=== PATIENT | male | born 1965 | race Caucasian/White ===

== ENCOUNTER 2019-01-07 18:50 | Emergency (ER) | payer OTHER ==
[~2019-01-07] VITALS: Ht 175.3 cm; Wt 93.9 kg
[~2019-01-07 18:50] MED LIST: ASPIR 8181 M1 PO; CARAFATE 1 GM TA1 GM PO; LIPITOR10 MG PO; PRILOSEC20 MG PO
[2019-01-07] MEDS ORDERED: OMEPRAZOLE 20 M20 M1 PO (19:00)
[2019-01-07] MEDS ORDERED: LISINOPRIL2.5 MG PO (19:00)
[2019-01-07 19:18] LABS: ABSOLUTE BASOPHILS 0.1 thou/uL (0.0-0.2); ABSOLUTE EOSINOPHILS 0.1 thou/uL (0.0-0.7); ABSOLUTE LYMPHOCYTES 1.3 thou/uL (0.8-5.3); ABSOLUTE MONOCYTES 1.2 thou/uL (0.0-1.2); ABSOLUTE NEUTROPHILS 6.6 thou/uL (1.6-8.1); BASOPHILS 0.6 %; EOSINOPHILS 0.7 %; HEMATOCRIT 38.5 % (42.0-52.0); HEMOGLOBIN 13.3 gm/dL (14.0-18.0); LYMPHOCYTES 13.9 %; MCH 29.2 pg (26.0-34.0); MCHC 34.5 g/dL (28.0-37.0); MCV 84.4 fL (80.0-100.0); MONOCYTES 13.4 %; MPV 8.7 fl. (7.2-11.1); NUCLEATED RBCS 0 /100WBC; PLATELET COUNT* 222 thou/uL (150-400); POLYS 71.4 %; RBC 4.55 mil/uL (4.50-6.00); RDW-CV 13.9 % (10.5-14.5); WBC 9.3 thou/uL (4.0-11.0)
[2019-01-07 19:38] LABS: ALBUMIN 3.5 g/dL (3.4-5.0); CALCIUM 9.1 mg/dL (8.5-10.1); POTASSIUM 3.9 mmol/L (3.5-5.1); TOTAL BILIRUBIN 0.9 mg/dL (<0.1-1.0); TOTAL PROTEIN 7.3 g/dL (6.4-8.2)
[2019-01-07 19:48] LABS: URINE BILIRUBIN NEGATIVE (Negative); URINE BLOOD NEGATIVE (Negative); URINE CLARITY CLEAR; URINE COLOR YELLOW; URINE GLUCOSE-RANDOM NEGATIVE (Negative); URINE KETONES NEGATIVE (Negative); URINE LEUKOCYTES-REFLEX NEGATIVE (Negative); URINE NITRITE-REFLEX NEGATIVE (Negative); URINE PROTEIN NEGATIVE (Negative)
[2019-01-07] MEDS ORDERED: FLAGYL500 M1 PO (20:50)
[2019-01-07] MEDS ORDERED: NORCO 5-325 TA1 EAC1 PO (20:50)
[2019-01-07] MEDS ORDERED: CIPRO500 MG PO (20:50)
[2019-01-07 21:13] VITALS: BP 146/99
--- NOTE | 2019-01-08 14:29 | EKG ---
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 : 1965 Requested By: Clara Wan Order Number: [id number] MD: Yobany Salas Measurements Intervals [place] Rate: 89 P: 43 W[place]: 167 QRS: 23 QRSD: 87 T: 16 QT: 326 QTc: 397 Interpretive Statements Sinus rhythm Probable left atrial enlargement Baseline wander in lead(s) V4,V6 Compared to ECG 11/11/2016 06:41:03 No significant changes Electronically Signed On 01-08-2019 14:29:32 CDT by Yobany Salas [email or web address] <ELECTRONICALLY SIGNED> By: Yobany Salas MD, [facility] 01/08/19 1429 28 28 Yobany Salas MD, FACC /EPI
== END 2019-01-07 21:15 | disposition home or self-care (01) ==
LOC: M.ERS 18:50
PROVIDERS: Physician Assistant
DX: K57.32 Diverticulitis of large intestine without perforation or abscess without bleeding (principal); I10 Essential (primary) hypertension; Z88.1 Allergy status to other antibiotic agents

== ENCOUNTER → 2019-01-19 | Outpatient (CLI) | payer OTHER ==
[~2019-01-19] MED LIST changes: +CIPRO500 MG PO; +FLAGYL500 M1 PO; +LISINOPRIL2.5 MG PO; +NORCO 5-325 TA1 EAC1 PO; +OMEPRAZOLE 20 M20 M1 PO
== END ==
LOC: M.CT 07:06
DX: K57.92 Diverticulitis of intestine, part unspecified, without perforation or abscess without bleeding (principal); K57.20 Diverticulitis of large intestine with perforation and abscess without bleeding; K51.40 Inflammatory polyps of colon without complications

== ENCOUNTER 2019-02-23 02:56 | Inpatient (IN) | payer OTHER ==
[~2019-02-23] VITALS: Ht 182.9 cm; Wt 97.1 kg
[2019-02-23 02:57] VITALS: BP 149/66
[2019-02-23 03:28] LABS: ABSOLUTE BASOPHILS 0.1 thou/uL (0.0-0.2); ABSOLUTE EOSINOPHILS 0.1 thou/uL (0.0-0.7); ABSOLUTE LYMPHOCYTES 1.5 thou/uL (0.8-5.3); ABSOLUTE MONOCYTES 0.7 thou/uL (0.0-1.2); ABSOLUTE NEUTROPHILS 3.5 thou/uL (1.6-8.1); BASOPHILS 1.1 %; EOSINOPHILS 1.3 %; HEMATOCRIT 37.5 % (42.0-52.0); HEMOGLOBIN 12.8 gm/dL (14.0-18.0); LYMPHOCYTES 26.1 %; MCH 28.1 pg (26.0-34.0); MCV 82.6 fL (80.0-100.0); MONOCYTES 11.7 %; MPV 8.8 fl. (7.2-11.1); NUCLEATED RBCS 0 /100WBC; PLATELET COUNT* 266 thou/uL (150-400); POLYS 59.8 %; RBC 4.54 mil/uL (4.50-6.00); RDW-CV 14.2 % (10.5-14.5); WBC 5.9 thou/uL (4.0-11.0)
[2019-02-23 03:40] LABS: URINE BILIRUBIN NEGATIVE (Negative); URINE BLOOD NEGATIVE (Negative); URINE CLARITY CLEAR; URINE COLOR YELLOW; URINE GLUCOSE-RANDOM NEGATIVE (Negative); URINE KETONES NEGATIVE (Negative); URINE LEUKOCYTES-REFLEX NEGATIVE (Negative); URINE NITRITE-REFLEX NEGATIVE (Negative); URINE PROTEIN 1+ (Negative); URINE SPECIFIC GRAVITY 1.025 (1.005-1.030); URINE UROBILINOGEN 0.2 E.U./dl (0.2-1.0)
[2019-02-23 03:52] LABS: CALCIUM 8.3 mg/dL (8.5-10.1); POTASSIUM 3.7 mmol/L (3.5-5.1)
[2019-02-23 03:54] LABS: PROTIME 10.1 Seconds (9.20-11.50)
[2019-02-23 03:56] LABS: ALBUMIN 3.4 g/dL (3.4-5.0); TOTAL BILIRUBIN 0.7 mg/dL (<0.1-1.0); TOTAL PROTEIN 6.5 g/dL (6.4-8.2)
[2019-02-23] MEDS ORDERED: FLAGYL500 M1 PO (04:13)
[2019-02-23] MEDS ORDERED: CIPROFLOXACIN500 M1 PO (04:13)
--- NOTE | 2019-02-23 06:55 | NUR ---
THIS NURSE RECIEVED REPORT FROM CATHRYN OROZCO. THIS NURSE TO ASSUME PT CARE AT THIS TIME.
--- NOTE | 2019-02-23 08:07 | NUR ---
REPORT GIVEN TO CATHRYN ERICKSON WHO IS TO ASSUME PT CARE INPATIENT NURSE.
[2019-02-23 08:10] VITALS: BP 124/63
--- NOTE | 2019-02-23 08:15 | NUR ---
PATIENT ALERT AND ORIENTED, RESTING W/ EYES CLOSED, RESPS EVEN AND UNLABORED. AWAKENS EASILY TO VERBAL/TOUCH STIM. PRESENT IN RM. IV FLUIDS INFUSING W/O DIFF. POC REVIEWED W/ PATIENT. ORIENTED TO RM AND CALL LIGHT. CALL LIGHT IN REACH. ~TJRN
--- NOTE | 2019-02-23 16:57 | EKG ---
[place] [address] ELECTROCARDIOGRAM REPORT Name: EDUARDO SANCHEZ May Room: [address] ADM IN M.R.#: [id number] Admission: 02/23/19 Attend Phys: Dimple Landeros Discharge: Date of : 67 Report #: [id number] THIS REPORT FOR: //name// [facility] ED Test Date: 2019-02-23 Test Time: 03:15:18 Pat Name: EDUARDO SANCHEZ Department: Room: [address] Gender: M [employer] Sal[employer] Administrator: [place] : 1965 Requested By: Meaghan Andres Order Number: [id number] MD: Yobany Salas Measurements Intervals [place] Rate: 0 P: 0 OR: QRS: 0 QRSD: T: QT: QTc: 0 Interpretive Statements All 12 leads are missing Compared to ECG 01/07/2019 19:29:59 Sinus rhythm no longer present Electronically Signed On 02-23-2019 16:57:03 SENIOR TRIAL ATTORNEY by Yobany Salas [email or web address] <ELECTRONICALLY SIGNED> By: Yobany Salas MD, [facility] 02/23/19 1657 Yobany Salas MD, FACC /EPI
--- NOTE | 2019-02-23 16:57 | EKG ---
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
--- NOTE | 2019-02-23 18:49 | NUR ---
PATIENT ALERT AND ORIENTED THRU SHIFT. DENIES PAIN, N/V. IV FLUIDS INFUSING S/O DIFF. BRANDI CL LIQS. PRESENT IN RM. INDEP IN RM. HRLY ROUNDS DONE. CURRENTLY RESTING IN BED, LIGHT ON, HOB UP TO PATIENT COMFORT. PRESENT. DENIES NEEDS AT THIS TIME. CALL LIGHT IN REACH. ~TJRN
[2019-02-24 03:57] VITALS: BP 117/71
[2019-02-24 04:19] LABS: CALCIUM 8.3 mg/dL (8.5-10.1); HEMATOCRIT 34.3 % (42.0-52.0); HEMOGLOBIN 11.7 gm/dL (14.0-18.0); MCH 28.5 pg (26.0-34.0); MCHC 34.2 g/dL (28.0-37.0); MCV 83.4 fL (80.0-100.0); MPV 9.2 fl. (7.2-11.1); POTASSIUM 3.7 mmol/L (3.5-5.1); RBC 4.11 mil/uL (4.50-6.00); RDW-CV 14.5 % (10.5-14.5); WBC 6.4 thou/uL (4.0-11.0)
--- NOTE | 2019-02-24 06:14 | NUR ---
PATIENT HAS SLEPT WELL THROUGHOUT MOST OF THE NIGHT. VSS ON RA. NO C/O PAIN. PATIENT IS UP AD-JORGE AND STEADY. NO BM NOTED. PATIENT HAS REMAINED ON CLEAR LIQUIDS. IV IN LEFT AC-NS @ 100ML/HR. PATIENT INSTRUCTED TO USE CALL LIGHT WHEN NEEDING ASSISTANCE. HOURLY ROUNDS MADE. WILL CONTINUE WITH PLAN OF CARE AND NURSING TO MONITOR.
[2019-02-24 07:55] VITALS: BP 115/71
[2019-02-24] MEDS ORDERED: CIPRO500 M1 PO ×2 (13:55→14:02)
[2019-02-24] MEDS ORDERED: PROBIOTIC1 EAC7 PO (13:55)
[2019-02-24] MEDS ORDERED: FLAGYL500 M1 PO (13:55)
[2019-02-24] MEDS ORDERED: ZOFRAN ODT4 MG DISSOLVE (14:02)
[2019-02-24 14:42] VITALS: BP 115/71
--- NOTE | 2019-02-24 15:14 | NUR ---
DISCHARGE TO HOME. PATIENT ALERT AND ORIENTED THRU SHIFT. DENIES PAIN. NO N/V. IV DISCONTINED, CATH TIP INTACT, COTTON BALL/TAPE APPLIED TO SITE. PRESENT AT THIS TIME. DISCHARGE INSTRUCTIONS REVIEWED W/ PATIENT/. SCRIPT FOR LAB WORK GIVEN TO PATIENT. COPY OF INSTRUCTIONS GIVEN TO PATIENT. PATIENT STATES VERBALLY OF UNDERSTANDING. PATIENT DRESSES INDEP. BELONGINGS GATHERED PER PATIENT/. PATIENT/ ESCORTED OFF UNIT PER PEDIS W/ WATER AND FIRE TECHNICIAN PRESENT. STEADY GAIT NOTED. NO FURTHER NEEDS VOICED. BELONGINGS LEFT UNIT W/ PATIENT. ~TJRN
--- NOTE | 2019-02-24 15:15 | CON ---
[address] [address] CONSULTATION Name: EDUARDO SANCHEZ Room: [address] IN M.R.#: [id number] Admission: 02/23/19 Attend Phys: Dimple Landeros Discharge: Date of : 67 Report #: [id number] THIS REPORT FOR: //name// CC: Viet Silverio DICTATED BY: Soumya Mosquera [facility] DATE OF SERVICE: 02/23/2019 Please note at the time of this dictation, the patient was seen and physically examined by myself. REASON FOR CONSULTATION: Abdominal pain and blood in stool. HISTORY OF PRESENT ILLNESS: This is a 53-year-old male who presented to the Emergency Room after feeling very lightheaded after getting up and using the restroom. He was also having some lower abdominal discomfort. He has had increase in his bowel habits and noted some bright red blood in his stool. The patient was seen in the Emergency Room on 01/07/2019 for his abdominal pain and he was noted to have diverticulitis. He was placed on Cipro and Flagyl and sent home. Followup CT in the end of December showed an improvement in the abscess and a decrease in the size and he was to follow up with us after the first of the year in which we would do colonoscopy to further evaluate his colon. The patient states that he started noticing some bright red blood and maroon-colored stool. He has been having an increase in his bowel movements around 3-4 a day and they are smaller in caliber than they normally are. They do not wake him up at night. He states whenever he wipes he will notice some bright red blood within the toilet. He noticed some maroon looking stool. He does have some slight abdominal discomfort, more on the left lower quadrant and does have some discomfort prior to a BM. Last colonoscopy was in 2012 that showed external hemorrhoids and repeat in 5 years, which he is overdue for at this time. Currently, denying any upper abdominal issues, GI issues except when his pain does increase a little bit, he may have some slight nausea, but no vomiting. He denies any loss of appetite or weight loss with any of this and denies any fever or chills at this time. ALLERGIES: ERYTHROMYCIN BASED MEDICATIONS. MEDICATIONS: From home include omeprazole and Zestril. PAST MEDICAL HISTORY: Heartburn, hypertension, GERD, recent diverticulitis. PAST SURGICAL HISTORY: [place] [address] CONSULTATION Name: EDUARDO SANCHEZ Room: [address]#: [id number] Admission: 02/23/19 Attend Phys: Dimple Landeros Discharge: Date of : 67 Report #: [id number] FAMILY HISTORY: Coronary artery disease. Negative for any GI or female cancers. SOCIAL HISTORY: Denies any alcohol, tobacco or illegal drug use. REVIEW OF SYSTEMS: A 12-point review of systems is essentially negative except what is mentioned in the HPI. PHYSICAL EXAMINATION: VITAL SIGNS: Temperature 36.2, pulse 64, respirations 17, blood pressure 124/63. HEART: Regular rate and rhythm. LUNGS: Clear. ABDOMEN: Soft, positive bowel sounds in all 4 quadrants with some tenderness noted in the lower quadrants. LABORATORY DATA: Hemoglobin 12.8, white count is 5.9, platelets 266. PT is 10.1, INR is 1. His GFR is 121. LFTs are completely normal. CT of the abdomen and pelvis showed persistent wall thickening and edema in the proximal descending colon adjacent to the posterior wall of the proximal descending colon may be minimally more prominent than previous in December, some focal inflammatory changes, necrotic tumor is not excluded. IMPRESSION: 1. Blood in stool. 2. Abdominal pain. 3. Slight nausea. 4. Recent diverticulitis in December and treated with Cipro and Flagyl. 5. History of colon polyps back in 2007. Last colon was in 2012 and it was negative. PLAN: 1. Clear liquid diet. 2. We will continue his IV antibiotics, Cipro and Flagyl. 3. We will discuss with Dr. Goodrich timing of his colonoscopy. Thank you for allowing us to participate in this patient's care. Please do not hesitate to call with any questions in regard to this consult. <ELECTRONICALLY SIGNED> By: Vanna Goodrich MD 02/24/19 1515 1106 [id number] Goodrich MD /nt
== END 2019-02-24 15:14 | disposition home or self-care (01) | DRG 379 ==
LOC: M.ERS 02:56 → M.TBA-ER 06:20 → M.ORTHSURG 06:20
PROVIDERS: Personal Emergency Response Attendant; ADMIT Family Medicine
DX: K57.33 Diverticulitis of large intestine without perforation or abscess with bleeding (principal); I10 Essential (primary) hypertension; K21.9 Gastro-esophageal reflux disease without esophagitis; R19.09 Other intra-abdominal and pelvic swelling, mass and lump; R74.8 Abnormal levels of other serum enzymes; Z79.899 Other long term (current) drug therapy; Z88.1 Allergy status to other antibiotic agents; Z72.0 Tobacco use; Z82.49 Family history of ischemic heart disease and other diseases of the circulatory system; Z86.010 Personal history of colon polyps

== ENCOUNTER → 2019-03-18 | Outpatient (CLI) | payer OTHER ==
[~2019-03-18] MED LIST changes: +CIPRO500 M1 PO; +CIPROFLOXACIN500 M1 PO; +PROBIOTIC1 EAC7 PO; +ZOFRAN ODT4 MG DISSOLVE
[2019-03-18 08:37] LABS: ABSOLUTE BASOPHILS 0.1 thou/uL (0.0-0.2); ABSOLUTE EOSINOPHILS 0.1 thou/uL (0.0-0.7); ABSOLUTE LYMPHOCYTES 1.5 thou/uL (0.8-5.3); ABSOLUTE MONOCYTES 0.6 thou/uL (0.0-1.2); ABSOLUTE NEUTROPHILS 6.5 thou/uL (1.6-8.1); BASOPHILS 0.7 %; EOSINOPHILS 0.6 %; HEMATOCRIT 40.5 % (42.0-52.0); HEMOGLOBIN 13.7 gm/dL (14.0-18.0); LYMPHOCYTES 16.8 %; MCHC 33.9 g/dL (28.0-37.0); MCV 82.5 fL (80.0-100.0); MONOCYTES 7.3 %; MPV 7.7 fl. (7.2-11.1); NUCLEATED RBCS 0 /100WBC; PLATELET COUNT* 313 thou/uL (150-400); POLYS 74.6 %; RBC 4.91 mil/uL (4.50-6.00); RDW-CV 14.8 % (10.5-14.5); WBC 8.7 thou/uL (4.0-11.0)
[2019-03-18 09:03] LABS: ALBUMIN 3.5 g/dL (3.4-5.0); CALCIUM 8.8 mg/dL (8.5-10.1); POTASSIUM 3.9 mmol/L (3.5-5.1); TOTAL BILIRUBIN 0.4 mg/dL (<0.1-1.0); TOTAL PROTEIN 7.3 g/dL (6.4-8.2)
== END ==
LOC: M.LAB 08:00 → M.CT 09:30
PROVIDERS: Internal Medicine Gastroenterology
DX: R91.1 Solitary pulmonary nodule (principal); C18.9 Malignant neoplasm of colon, unspecified; K76.89 Other specified diseases of liver